=== PATIENT | male | born 1960 | race Caucasian/White ===

== ENCOUNTER 2022-10-31 08:06 | Outpatient (CLI) | payer OTHER ==
[2022-10-31 08:53] VITALS: BP 126/80
--- NOTE | 2022-10-31 08:53 | SLEEP CARE CONSULTATION ---
Information from patient questionnaire entered by Carin Frey. I have reviewed and concur with the information entered by Carin Frey. This document represents the service I personally performed and the decisions made by me, Jody Tucker ARNP. History of Present Illness Service Date and Time: 10/31/2022 0806 Reason for Visit: New patient, sleep apnea on CPAP therapy Chief Complaint: reports: Other (TRANSFER FROM [facility]) Usual bedtime: 9PM Time it takes to fall asleep: 10MIN Snores at night: Yes Observed to quit breathing while asleep: Yes Sleeps alone due to snoring: No Number of times waking at night: MULTIPLE Toss, Turn, or Twitch while sleeping: No Recalls having dreams: Yes Usually gets out of bed at: 4AM Feels refreshed in the morning: Yes Morning headache: No Sleepy or fatigued during the day: No Ever fallen asleep while driving: No Takes day naps: No Dreams during day naps: No Prior sleep studies: Yes ([facility]) Additional HPI information: NINA NICHOLE was previously diagnosed to have unknown, AHI unknown, obstructive sleep apnea-hypopnea syndrome at [facility] in May 2022 and comes in today to establish care for CPAP therapy. - Parasomnia Symptoms Walks in sleep: No Talks in sleep: No Ever acted out dreams in sleep: No Ever felt weak in the knees when startled or emotional: No Bothered by creepy, crawly, restless sensations in legs: No Problems with memory or concentration: No CPAP Compliance Data - Data Reviewed with Patient Average duration of nightly device use: 5 hours 44 minutes Compliance rate %: 77 (/30 days used) Current pressure setting (cmH2O): 7-9 Average residual AHI: 3.1 Central apnea: 0.7 Obstructive apnea: 1.0 Compliance data discussion: He has been on his Resmed Airsense 11 CPAP for almost 5 months. He is using a full face Resmed F20. He is getting his supplies from [employer]. Subjective Missed days of use due to: reports: other (when washes tubing/mask) Patient concerns: denies: aerophagia, mask discomfort, air blowing in eyes, mask leak noise, condensation in mask/hose, nasal congestion, dry mouth, nose, throat, epistaxis Observed to snore while using device: No Current pressure setting perceived as: comfortable On therapy, patient: reports: sleeping better, awakening more refreshed, being more awake and alert during the day, more rested overall. denies: drowsiness while driving Initial [place] Sleepiness Scale score: 4 (10/02/22) Past Medical History Past Medical History: reports: Hypertension, Stroke (03/2022), Arthritis, Other Social History The patient's occupation is a SE. Patient is and lives in . Have you smoked in the past 12 months: No Alcohol use: Yes Alcohol amount and frequency: 1 BEER 1 WEEK Caffeine use: Yes Caffeine amount and frequency: 1 CUP DAILY Family History Family history of sleep disordered breathing: Yes Family Hx Sleep Apnea: Father: Snoring Allergies and Home Medications Known drug allergies: Yes (PENICILLIN) Drug allergies reviewed: Yes Home medication list reviewed: Yes Allergy and home medication list: Medications: Pradaxa BP meds water pill Review of Systems Weight loss over past 5 years: 15 Cardiovascular: reports: high blood pressure Gastrointestinal: denies: heartburn Neurological: denies: headaches Psychiatric: denies: anxiety, depression Immunologic: reports: allergies to food or environment Physical Exam Vital signs obtained and entered by: CARIN Montejo MA Blood Pressure: 126/80 (LEFT ARM) Cuff size: regular Heart Rate: 56 O2 Saturation: 95 Height: 6 ft Weight: 258 lb Body Mass Index: 34.9 BMI Classification: Obese Neck circumference: 19.25 Heart: regular rate and rhythm Lungs: clear bilaterally Impression and Plan 1. Obstructive Sleep Apnea-Hypopnea Syndrome, unknown, with good treatment compliance and good apnea control. On CPAP therapy, the patient has better sleep quality and is more rested overall. He is here to establish care. He has been diagnosed with sleep apnea and he states he had around 50 events. He had some adjustments with his mask at first but he states he is doing well now. He feels comfortable with his CPAP therapy. Patient's apnea severity and rationale for treatment to reduce apnea, improve sleep quality and reduce cardiovascular and cerebrovascular events was reviewed. I also reviewed the benefit of consistent device use of CPAP for cerebrovascular disease (stroke). I do not yet have a copy of his last sleep study from [facility]. This will be requested again. If we are unable to get a copy than another sleep study will have to be done. Patient voiced understanding. 2. Obesity, unspecified. Currently patients BMI is 34.9. Obesity increases the risk of apnea, CPAP pressure requirements and overall health risks especially cardiovascular and diabetes. Thus patient is advised to lose weight. * Continue auto CPAP pressure at 7-9 cmH2O * Obtain copy of sleep study * Update supplies once we have copy of sleep study * Notify me if snoring with mask or feeling that the pressure is too much or too little * Attempt to lose weight * Call this office if any problems using CPAP * Return for follow up in 1 year, or sooner if concerns arise Counseling Topics: Spare mask, Weight loss health impact Visit Type: In Office Time Spent with Patient (minutes): 31 Provider Statement: I spent 100% of the Face to Face Visit with the patient with greater than 50% spent counseling the patient and coordination of care.
== END 2022-10-31 08:07 | disposition home or self-care (01) ==
LOC: SC 08:06
PROVIDERS: ATTEND Nurse Practitioner Family
DX: G47.33 Obstructive sleep apnea (adult) (pediatric) (principal); E66.9 Obesity, unspecified; Z68.34 Body mass index [BMI] 34.0-34.9, adult
CPT/HCPCS: 99203; 99212